=== PATIENT | female | born 1955 | race Caucasian/White ===

== ENCOUNTER 2016-09-27 14:55 | Emergency (ER) | payer OTHER ==
--- NOTE | 2016-09-27 15:47 | PROVIDER DOCUMENTATION ---
HPI-Musculoskeletal Pain/Inj - GENERAL Chief Complaint: Extremity Injury Stated Complaint: RIGHT ARM PAIN Time Seen by Provider: 09/27/16 15:37 Source: patient - HX OF PRESENT ILLNESS-MUSKULOSKELTAL Nature of Presenting Problem: 60 year old WF presents with c/o right wrist tenderness, pt reports she had a mechanical fall 1 week ago and struck her right wrist onto concrete. she reports mild swelling/tenderness at that time. this morning she awoke with diffuse pain, swelling, tenderness at the right lateral wrist. pt has a history of previous fractures to this wrist with surgery. she reports she has an appointment with her hand surgeon this . Quality of Pain: reports: aching, dull Severity in ED: mild Onset/Duration: 1 week ago Timing: still present, constant, getting worse Review of Systems - Adult - REVIEW OF SYSTEMS - ADULT Constitutional: reports: no symptoms reported. denies: chills, fever, fatique Eyes: reports: no symptoms reported. denies: discharge, blurred vision, double vision, redness Ears, Nose, Mouth & Throat: reports: no symptoms reported. denies: ear discharge, ear pain, nose pain, loose teeth, throat pain, throat swelling Cardiovascular: reports: no symptoms reported. denies: chest pain, palpitations , syncope Respiratory: reports: no symptoms reported. denies: chronic cough, cough, shortness of breath, wheezing Gastrointestinal: reports: no symptoms reported. denies: abdominal pain, nausea , vomiting Genitourinary: reports: no symptoms reported. denies: dysuria, hematuria, urgency Musculoskeletal: reports: see HPI, joint pain, joint swelling. denies: bone pain, back pain, frequent leg cramps, muscle aches, muscle weakness, neck pain Integumentary: reports: see HPI, rash (right wrist). denies: hives, itching, skin sores/ulcer Neurological: reports: no symptoms reported. denies: ataxia, dizziness/vertigo Psychiatric: reports: no symptoms reported Endocrine: reports: no symptoms reported Hematologic/Lymphatic: reports: no symptoms reported Allergic/Immunologic: reports: no symptoms reported All Other Systems: Reviewed and Negative Past History - Adult - PAST MEDICAL HISTORY-ADULT Review of Records: reports: Old Records Reviewed, Nursing Assessment Review, Medications Reviewed, Social history reviewed & non-contributory. Major Childhood Illnesses: reports: denies history Cardiovascular: reports: denies history Respiratory: reports: cancer Gastrointestinal: reports: cancer, hepatitis (Hep C), ulcer (perforated) Obstetrical/Gynecological: reports: denies history Genitourinary: reports: denies history Musculoskeletal: reports: chronic pain Neurological: reports: denies history Psychiatric: reports: other Endocrine/Immune: reports: denies history Other Conditions: reports: MRSA - PRIOR SURGERIES/PROCEDURES Surgical/Procedure History: reports: hysterectomy, other (fx right wrist with pins/ lobectomy) - IMMUNIZATION STATUS Childhood Immunizations: See Nurse Assessment Flu Vaccine: See Nurse Assessment - FAMILY HISTORY Family History: reviewed, not pertinent - SOCIAL HISTORY Smoking: cigarettes Provider spent 3-5 mins advising pt. on dangers of tobacco.: Discussed manners to quit use, and f/u contacts for add'l counseling. Substance Use: none/never Alcohol Use Frequency: never Physical Exam-Injury Related - Physical Exam-Injury Related Initial Vital Signs Reviewed: Yes General Appearance: appears well, alert, no apparent distress. negative: mild distress, moderate distress, severe distress, lethargic, slow to respond, obtunded, combative Eyes: pink conjunctivae. negative: conjuctival exudate, pale conjunctivae, sclera injected, scleral icterus, subconjunctival hemorrhage Head, Ears, Nose, Mouth & Throat: normocephalic/atraumatic, moist mucous membranes, normal ENT inspection Neck: non-tender, full range of motion, supple, normal inspection. negative: C- spine tenderness, decresed ROM, limited range of motion, pain on movement, tender lateral, tender midline, vertebral point tenderness Respiratory: chest non-tender, lungs clear, normal breath sounds, no pleuratic chest pain, no respiratory distress, no accessory muscle use. negative: respiratory distress, decreased breath sounds, accessory muscle use, crackles Cardiovascular: normal peripheral pulses, regular rate, rhythm Chest/Breast: no tenderness Peripheral Pulses: radial (R): 3+, radial (L): 3+, dorsalis-pedis (R): 3+, dorsalis-pedis (L): 3+ Abdominal Exam: normal bowel sounds, non tender, soft Female Genitalia/Pelvic Exam: deferred Rectal Exam: deferred Hemoccult Exam: deferred Back Exam: normal inspection, no CVA tenderness, no vertebral tenderness. negative: CVA tenderness, decreased range of motion, swelling, vertebral tenderness Extremity: normal gait, no pedal edema, no calf tenderness, pelvis stable, erythema (right lateral wrist tenderness and erythema), inflammation, swelling, tenderness. negative: normal range of motion, non-tender, normal inspection, normal capillary refill, abnormal NV exam, calf tenderness, deformity, joint effusion, pulse deficit, pedal edema, slow capillary refill Integumentary: normal color, warm/dry, erythema Neurologic: grossly normal, no motor/sensory deficits. negative: focal weakness , motor weakness, sensory deficit Psych/Mental Status: normal mood/affect, normal thought content, normal thought process, oriented x 3 - Glascow Coma Score Best Eye Response ([place]): (4) open spontaneously Best Verbal Response ([place]): (5) oriented Best Motor Response ([place]): (6) obeys commands [place] Total: 15 Progress - PLAN OF CARE/RESULTS Progress/Plan/Lab Results: Orders Category Date Time Status Wrist Splint DIRECTED Care 09/27/16 16:50 Active WRIST COMPLETE RIGHT [RAD] Stat Exams 09/27/16 15:43 Draft Vital Signs - 24 hr 09/27/16 09/27/16 15:11 17:20 Temperature 97.9 F Pulse Rate 97 H 78 Respiratory 18 18 Rate Blood Pressure 141/82 162/89 O2 Sat by Pulse 97 100 Oximetry - XRAY 1 XRAY: Right XRAY Study: Wrist Impression: Abnormal (findings at the wrist appear to be chronic, if clinical suspicion persists then a bone scan may be beneficial.per Dr. Ryan) Departure - Departure Time of Disposition Order: 16:34 DIAGNOSIS: Wrist pain, right Cellulitis Qualifiers: Site of cellulitis: extremity Site of cellulitis of extremity: upper extremity Laterality: right Qualified Code(s): L03.113 - Cellulitis of right upper limb Disposition: HOME Certified Medical Emergency: Emergent Condition: Stable Additional Instructions: Follow up with your hand/wrist surgeon on as scheduled. ED Follow Up Instructions: You have been treated by a care provider in the Emergency Department. These instructions are being provided to you so you can have an understanding of how to care for yourself upon discharge. Upon discharge from the Emergency Department, you are responsible for making arrangements for follow-up care by a physician of your choice. Take all prescribed medications as directed. Return to the Emergency Department immediately for any new or worsening symptoms. You may call the Physician Referral phone number at [phone] to obtain a list of Physicians who are taking new patients. Prescriptions: Clindamycin [Cleocin] 450 mg PO Q6HR #84 capsule Oxycodone/APAP 10 mg/325 mg [Percocet-10] 1 each PO Q8H PRN PRN #7 tablet PRN Reason: right wrist pain Referrals: Nabil Orozco MD [Primary Care Provider] - Instructions: Cellulitis, [id number], Wrist Sprain Attestation - Physician/ ALMITA Attestation Patient care was provided by Advanced Practice Provider:: Yes Advanced Practice Provider:: Leonel Mendoza Advanced Practice Provider documentation review:: The Mid-level provider documentation, treatment plan and medical decision making was reviewed by the physician who agrees with all treatment and medical decision making by the MLP.
--- NOTE | 2016-09-27 17:05 | Diag Imaging Result Document ---
PROCEDURE NAME: WRIST COMPLETE RIGHT - 09/27/2016 RIGHT WRIST, THREE VIEWS: FINDINGS: There has been prior surgery to the wrist with plate and screws in the distal radius. These were present on 11/10/2014. 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 Deformity to the scaphoid apparently representing chronic changes. The bones are osteopenic. Slight dorsal angulation of the lunate. IMPRESSION: Findings at the wrist appear to be chronic. If clinical suspicion persists then a bone scan may be beneficial.
[2016-09-27 17:24] VITALS: BP 162/89
== END 2016-09-27 17:24 | disposition home or self-care (01) ==
LOC: ED 14:55
DX: L03.113 Cellulitis of right upper limb (principal); M25.531 Pain in right wrist; M25.431 Effusion, right wrist; R21 Rash and other nonspecific skin eruption; L53.9 Erythematous condition, unspecified; G89.29 Other chronic pain; B19.20 Unspecified viral hepatitis C without hepatic coma; F17.210 Nicotine dependence, cigarettes, uncomplicated; Z79.899 Other long term (current) drug therapy; Z71.6 Tobacco abuse counseling; Z85.9 Personal history of malignant neoplasm, unspecified; Z86.14 Personal history of Methicillin resistant Staphylococcus aureus infection; W19.XXXA Unspecified fall, initial encounter